=== PATIENT | male | born 1985 | race Caucasian/White ===

== ENCOUNTER 2017-08-02 08:01 | Emergency (ER) | payer OTHER ==
[~2017-08-02] VITALS: Ht 180.3 cm; Wt 111.1 kg
[~2017-08-02 08:01] MED LIST: BUCALSEP SPRAY30 ML MM; ZITHROMAX500 MG PO
== END 2017-08-02 16:24 | disposition home or self-care (01) ==
LOC: ER 08:01
DX: K52.9 Noninfective gastroenteritis and colitis, unspecified (principal)